=== PATIENT | female | born 1975 | race African-American/Black ===

== ENCOUNTER 2021-03-20 16:37 | Emergency (ER) | payer OTHER ==
[~2021-03-20] VITALS: Ht 172.7 cm; Wt 91.0 kg
[2021-03-20] MEDS ORDERED: CYCLOBENZAPRINE 10MG TABLET PO ONE (17:30)
[2021-03-20] MEDS ORDERED: KETOROLAC 15MG/ML VIAL IV ONE (17:30)
[2021-03-20] MEDS ORDERED: KETOROLAC 30MG/ML VIAL IV SCH (17:45)
[2021-03-20] MEDS ORDERED: CYCL10TA7 MT (19:16)
[2021-03-20] MEDS ORDERED: IBUP-2028 MT (19:16)
[2021-03-20 19:35] VITALS: BP 146/83
== END 2021-03-20 19:35 | disposition home or self-care (01) ==
LOC: ER 16:37
DX: S50.02XA Contusion of left elbow, initial encounter (principal); M25.511 Pain in right shoulder; V49.59XA Passenger injured in collision with other motor vehicles in traffic accident, initial encounter; Y93.89 Activity, other specified; Y92.488 Other paved roadways as the place of occurrence of the external cause; J45.909 Unspecified asthma, uncomplicated
CPT/HCPCS: 71045; 73030; 73080; 96374; 99284; J1885

== ENCOUNTER 2023-08-18 21:50 | Emergency (ER) | payer MEDICAID, OTHER ==
[~2023-08-18] VITALS: Ht 165.1 cm; Wt 85.0 kg
[~2023-08-18 21:50] MED LIST: CYCL10TA21 MT; IBUP-2028 MT
[2023-08-18 21:51] VITALS: TEMP 98.5; O2SAT 100
[2023-08-18 22:47] LABS: CLARITY URINE CLOUDY (CLEAR); COLOR URINE YELLOW (YELLOW); GLUCOSE URINE NEGATIVE (NEGATIVE); KETONES URINE NEGATIVE (NEGATIVE); LEUKOCYTE ESTERASE URINE NEGATIVE (NEGATIVE); NITRITE URINE NEGATIVE (NEGATIVE); OCCULT BLOOD URINE 1+ (NEGATIVE); PH URINE 5.5 (4.5-8.0); PROTEIN URINE NEGATIVE (NEGATIVE); SPECIFIC GRAVITY URINE 1.012 (1.005-1.030); UROBILINOGEN URINE 0.2 E.U./dL (0.2-1.0)
[2023-08-18 22:57] LABS: BACTERIA URINE 2+; SQUAMOUS EPITHELIAL CELL URINE 1+ /lpf (RARE/1+); WBC URINE 0-2 /hpf (0-2)
[2023-08-18 23:40] LABS: BASOPHILS % 0.8 % (0.0-2.0); EOSINOPHILS % 1.9 % (0.0-5.0); HEMATOCRIT. 42.2 % (36.0-48.0); HEMOGLOBIN. 13.9 g/dL (12.0-16.0); LYMPHOCYTES % 32.6 % (20.0-50.0); MEAN CORPUSCULAR HEMOGLOBIN 30.9 pg (28.0-32.0); MEAN CORPUSCULAR HGB CONC 32.8 g/dL (31.0-37.0); MEAN CORPUSCULAR VOLUME 94.2 fL (81.0-99.0); MEAN PLATELET VOLUME 7.3 fl (7.4-10.4); NEUTROPHILS % 57.7 % (40.0-76.0); PLATELET 437 x1000/uL (130-400); RED BLOOD CELL COUNT 4.48 mill/uL (4.2-5.4); RED CELL DISTRIBUTION WIDTH 12.6 % (11.6-14.6); WHITE BLOOD COUNT 9.2 x1000/uL (4.5-11.0)
[2023-08-18 23:42] LABS: CHLORIDE 104 mEq/L (98-107); POTASSIUM 4.3 mEq/L (3.5-5.1); SODIUM 137 mEq/L (136-145)
[2023-08-18 23:43] LABS: CALCIUM 9.1 mg/dL (8.7-10.4); CARBON DIOXIDE 23 mEq/L (21-32)
[2023-08-18 23:45] LABS: HCG SCREEN NEGATIVE
[2023-08-18 23:48] LABS: GLUCOSE 106 mg/dL (70-105); UREA NITROGEN BLOOD 9 mg/dL (9-23)
[2023-08-18 23:50] LABS: ALANINE AMINOTRANSFERASE 37 IU/L (10-49); ALBUMIN 4.2 g/dL (3.2-4.8); ASPARTATE AMINOTRANSFERASE 68 IU/L (<34); BILIRUBIN TOTAL 0.4 mg/dL (0.1-1.0); INR 0.9; PARTIAL THROMBOPLASTIN TIME 25.1 sec (23.4-31.0); PROTEIN TOTAL 7.7 g/dL (6.0-8.3); PROTHROMBIN TIME 10.3 sec (9.6-11.0)
[2023-08-19] MEDS ORDERED: KETOROLAC 30MG/ML VIAL IM ONE (02:15)
[2023-08-19] MEDS ORDERED: CYCL5TAB MT (02:28)
[2023-08-19] MEDS ORDERED: LIDO700A15 TP (02:28)
[2023-08-19] MEDS: HYDROCODONE/ACETAMINOPHEN 10/325MG TABLET PO ONE (02:40)
[2023-08-19 02:54] VITALS: BP 130/80; PULSE 90; RESP 15
[2023-08-19] MEDS ORDERED: IOHEXOL-300 100 ML BOTTLE ONE (04:32)
== END 2023-08-19 03:33 | disposition home or self-care (01) ==
LOC: ER 21:50
DX: M25.512 Pain in left shoulder (principal); R10.9 Unspecified abdominal pain; J45.909 Unspecified asthma, uncomplicated; I10 Essential (primary) hypertension; V98.8XXA Other specified transport accidents, initial encounter; Y93.89 Activity, other specified; Y92.89 Other specified places as the place of occurrence of the external cause; Y99.8 Other external cause status
CPT/HCPCS: 99285; 71045; 80053; 81003; 84703; 85025; 85610; 85730; 86850; 86900; 86901; 36415; 73030; 72125; 74177; Q9967; A4565